=== PATIENT | male | born 1990 | race Caucasian/White ===

== ENCOUNTER 2023-08-05 17:55 | Emergency (ER) | payer OTHER, SELFPAY ==
[2023-08-05 18:09] VITALS: BP 127/76; PULSE 103; RESP 24; TEMP 36.9; O2SAT 100; BMI 23.5
--- NOTE | 2023-08-05 19:05 | CRLHL7_ITS ---
For Patients: As a result of the Century Cures Act, medical imaging exams and procedure reports are released immediately into your electronic medical record. You may view this report before your referring provider. If you have questions, please contact your health care provider. INDICATION: Left upper quadrant pain, vomiting TECHNIQUE: CT abdomen and pelvis acquired with 74 mL Isovue 370 IV contrast. COMPARISON: None FINDINGS: Lower chest: Unremarkable. Liver: 1.1 cm cyst suggested at the inferior medial right lobe, images 51 through 53 of series 2, otherwise unremarkable. Spleen: Unremarkable. Pancreas: Unremarkable. Gallbladder and bile ducts: Unremarkable. Kidneys: 4.2 millimeter nonobstructive calculus within right kidney, otherwise unremarkable. Adrenal glands: Unremarkable. GI tract: Equivocal wall thickening of the stomach, with area of fluid and mucosal thickening at the posterior body of stomach, see images 29 through 39 of series 2, possibly ulceration. The small bowel and colon are unremarkable. No evidence to suggest obstruction. Appendix is normal. Vascular structures: Negative. No sign of aneurysm. Lymph nodes: Unremarkable. Miscellaneous: Unremarkable. No free air or significant free fluid. Pelvic Organs: Unremarkable. Bones: Unremarkable for age. IMPRESSION: 1. Abnormal appearance of the stomach, as above. Ulceration is possibility. Mucosal thickening/wall thickening/gastritis also suggested. Consider endoscopy. 2. Nonobstructive 4.2 millimeter calculus within right kidney. 3. Small hepatic cyst. Please note that all CT scans at this facility use dose modulation, iterative reconstruction, and/or weight-based dosing when appropriate to reduce radiation dose to as low as reasonably achievable. Dictated by Edmundo Huitron MD @ 08/05/2023 8:43:33 PM (Electronically Signed)
--- NOTE | 2023-08-05 19:08 | ED_ITS ---
HPI - General Adult General Date Seen: 08/05/23 Chief complaint: Abdominal Pain Stated complaint: Pain L side abdomen Time Seen by Provider: 08/05/23 18:48 History of Present Illness HPI narrative: This is a pleasant 33-year-old gentleman presenting to the ER today for 2 days of nausea and vomiting and left upper quadrant abdominal pain which began this afternoon. He is generally healthy. No previous history of peptic ulcer disease, previous GI problems, previous surgeries. He does not take any routine medications. 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 He does not use marijuana or other drugs. He is here with his . He did get his COVID booster on Sunday and felt fine that day. He was awoken from sleep overnight Sunday morning around 3:00 a.m., roughly 36-40 hours prior to presentation) with nausea and vomiting. He had multiple episodes of vomiting throughout the day on Sunday there were mostly food and water. He was feeling weak. No fever. Not much pain. No bowel movements. He felt a little bit better overnight Sunday night and into Sunday morning but it was again woken from sleep at around 4:00 a.m. Sunday with more vomiting. He had mostly dry heaves and small amounts of yellow mucousy material. He went to the ER in [place] this morning. While there it sounds like he received IV fluids and IV Zofran and IV Toradol. He was discharged home. They told him to stop drinking alcohol (which he does not drink). It is unclear if he had any laboratory workup or not. No imaging. He was given a prescription for Zofran. The Zofran is not helping this afternoon. He has had more episodes of dry heaving. He had 1 episode of a small volume of brownish material but nothing obviously bloody. He has been chilled and his thought he subjectively was running a fever yesterday. No diarrhea. No bowel movements as we can. He is urinating less than normal. He recalls that he did have an episode of nausea and vomiting couple of weeks ago. He was seen at the ER and [facility] for that and given Zofran which was highly effective. No other previous episodes of nausea vomiting. No marijuana use. No history of cyclic vomiting syndrome or cannabis hyperemesis syndrome. Related Data Previous Rx's Medication Instructions Recorded metoclopramide HCl 10 mg tablet 10 mg PO Q6H PRN nausea and 08/05/23 (Reglan) vomiting #14 tabs omeprazole 40 mg capsule,delayed 40 mg PO DAILY #30 caps 08/05/23 release Allergies Allergy/AdvReac Type Severity Reaction Status Date / Time amoxicillin Allergy Verified 08/05/23 18:08 [facility] Social History Smoking Status: Never smoker Do you use any of these nicotine containing products: None Second hand tobacco smoke exposure: No How often do you have a drink containing alcohol: never How often do you have six or more drinks on one occasion: Never AUDIT-C Alcohol total score: 0 Non-prescribed substance use: denies use service: No Exam Narrative: Exam Narrative: Constitutional: Appears well-developed and well-nourished. Alert. Conversant. Non toxic. HENT: Head: Atraumatic. Nose: Nose normal. Mouth/Throat: Oral mucosa is clear but dry. Not desiccated a cracked. no trismus. Pharynx normal. Tonsils symmetric. No tonsillar enlargement, erythema, or exudate. Eyes: Conjunctivae normal. EOM normal. Pupils equal, round, and reactive to light. No scleral icterus. Neck: Normal range of motion. Neck supple. No tracheal deviation present. Cardiovascular: Normal rate, regular rhythm. No gallop. No friction rub. No murmur heard. Symmetric radial artery pulses Pulmonary/Chest: Effort normal. No stridor. No respiratory distress. No wheezes. No rales. No rhonchi . No tenderness. Abdominal: Soft. Bowel sounds normal. No distension. No mass. Left upper quadrant and left epigastric tenderness. No CVA tenderness. No right upper quadrant tenderness or Miller sign. No lower abdominal tenderness. No rebound. No guarding. Musculoskeletal: RUE: Normal range of motion. No tenderness. No deformity LUE: Normal range of motion. No tenderness. No deformity RLE: Normal range of motion. No edema. No tenderness. No deformity LLE: Normal range of motion. No edema. No tenderness. No deformity Neurological: Alert and oriented to person, place, and time. Normal strength. CN II-VII intact. No sensory deficit. GCS eye subscore is 4. GCS verbal subscore is 5. GCS motor subscore is 6. Normal coordination Skin: Skin is warm and dry. No rash noted. No pallor. Normal capillary refill. Psychiatric: Normal mood. Normal affect. Const: Vital Signs, click to edit/add: Vital Signs - 24 hr 08/05/23 18:09 08/05/23 19:45 Temperature 98.5 F Pulse Rate [Pulse Oximeter] 103 H 89 Respiratory Rate 24 24 Blood Pressure [Ri t Upper Arm] 127/76 123/80 Pulse Oximetry 100 99 Oxygen Delivery Me thod Room Air Room Air Course Course ED Course: [id number]-810. Feeling much better. Sitting up in bed. Nausea improved. Pain improved. IV fluid bolus complete. Awaiting workup. Vital Signs Vital signs: Initial Vital Signs Temperature 98.5 F 08/05/23 18:09 Temperature Source Temporal Artery Scan 08/05/23 18:09 Pulse Rate 103 H 08/05/23 18:09 Pulse Rhythm Regular 08/05/23 18:09 Respiratory Rate 24 08/05/23 18:09 Blood Pressure 127/76 08/05/23 18:09 Blood Pressure Mean 93 08/05/23 18:09 Blood Pressure Position Sitting 08/05/23 18:09 Pulse Oximetry 100 08/05/23 18:09 Oxygen Delivery Method Room Air 08/05/23 18:09 Vital Signs Temperature 98.5 F 08/05/23 18:09 Pulse Rate 103 H 08/05/23 18:09 Respiratory Rate 24 08/05/23 18:09 Blood Pressure 127/76 08/05/23 18:09 Pulse Oximetry 100 08/05/23 18:09 Oxygen Delivery Method Room Air 08/05/23 18:09 Temperature 98.5 F 08/05/23 18:09 Pulse Rate 89 08/05/23 19:45 Respiratory Rate 24 08/05/23 19:45 Blood Pressure 123/80 08/05/23 19:45 Pulse Oximetry 99 08/05/23 19:45 Oxygen Delivery Method Room Air 08/05/23 19:45 Medical Decision Making MDM Narrative Medical decision making narrative: Presented to the Emergency Department with 2 days of nausea and vomiting now associated with left upper quadrant epigastric abdominal pain. The differential diagnosis of abdominal pain includes: Appendicitis, Bowel Obstruction, Ulcer, Ischemia, Cholecystitis, Diverticulitis, Pancreatitis, UTI, kidney stone, Enteritis/Colitis, amongst many other etiologies. Laboratory testing does not reveal a cause for the patient's pain. CT Imaging is noted to be show signs of gastritis, also incidental kidney stone and hepatic cyst (discussed with the patient and his ). We are suspicious that his symptoms are probably related to peptic ulcer disease or gastritis. He has tremendously improved after Reglan and fluids here in the ER. He is not having any symptoms of GI bleeding. Vital signs stable. Observed here in the ER for more than 3 hours with no recurrent vomiting or signs of bleeding. At this point only needs to be admitted for hemoglobin monitoring or immediate endoscopy. Start him on Reglan for symptomatic relief and Prilosec. Recommend close outpatient follow-up for endoscopy and further evaluation. Follow-up with surgery or primary care or return to the ED is indicated. The patient also understands that if they worsen, they should return to the ER right away. I discussed the uncertainty about the diagnosis and answered the patient's questions. Abdominal pain return precautions discussed. Lab Data Labs: Lab Results 08/05/23 08/05/23 Range/Units 19:25 19:47 WBC 6.94 (4.50-11.00) K/uL RBC 4.66 (4.30-5.90) m/uL Hgb 13.5 (13.5-17.5) gm/dL Hct 39.8 (37.0-53.0) % MCV 85 (80-100) fL MCH 29 (26-34) pg MCHC 34 (32-36) gm/dL RDW Coeff of Shelly 12.4 (11.5-15.5) % Plt Count 322 (140-440) K/uL Neut % (Auto) 83.8 H (42.0-72.0) % Lymph % (Auto) 11.5 L (20-44) % [place] % (Auto) 4.6 (0.0-11.0) % Eos % (Auto) 0.0 (0.0-7.0) % Baso % (Auto) 0.0 (0.0-3.0) % Neut # (Auto) 5.80 (1.7-7.0) K/uL Lymph # (Auto) 0.80 L (0.90-2.90) K/uL [place] # (Auto) 0.30 (0.00-0.90) K/UL Eos # (Auto) 0.00 (0.00-0.50) K/uL Baso # (Auto) 0.00 (0.00-0.30) K/uL Abs Immat Gran (auto) 0.01 (0.00-0.30) K/uL Imm/Tot Granulo (auto) 0.1 % Sodium 135 (135-149) mmol/L Potassium 3.9 (3.6-5.1) mmol/L Chloride 102 (96-114) mmol/L Carbon Dioxide 24 (20-32) mmol/L Anion Gap 9 (7-15) mEq/L BUN 11 (5-24) mg/dL Creatinine 0.6 (0.5-1.5) mg/dL Estimated Creat Clear 165.25 Estimated GFR 132 ml/min Glucose 104 (60-115) mg/dL Calcium 8.9 (8.4-10.6) mg/dL Total Bilirubin 0.7 (0.1-1.5) mg/dL AST 42 H (12-35) U/L ALT 38 (4-50) U/L Alkaline Phosphatase 68 (40-150) U/L Total Protein 7.9 (6.0-8.3) g/dL Albumin 4.4 (3.3-5.0) g/dL Lipase 73 (23-300) U/L Urine Color Yellow (Yellow) Urine Appearance Clear (Clear) Urine pH 7.0 (5.0-8.5) Ur Specific [place] 1.015 (1.000-1.030) Urine Protein Negative (Negative) Urine Glucose (UA) Negative (Negative) Urine Ketones Negative (Negative) Urine Blood Negative (Negative) Urine Nitrite Negative (Negative) Urine Bilirubin Negative (Negative) Urine Urobilinogen 0.2 (0.2-1.0) Ur Leukocyte Esterase Negative (Negative) Urine RBC 0-2 (0-2) Urine WBC 0-2 (0-5) Urine WBC Clumps None (None) Ur Squamous Epith Cells Few (None-Few) Urine Bacteria Few A (None) Imaging Data CT scan - abdomen: Attestation: I have reviewed the pertinent imaging results. Radiologist's impression: IMPRESSION: 1. Abnormal appearance of the stomach, as above. Ulceration is possibility. Mucosal thickening/wall thickening/gastritis also suggested. Consider endoscopy. 2. Nonobstructive 4.2 millimeter calculus within right kidney. 3. Small hepatic cyst. Discharge Plan Discharge Clinical Impression: Gastritis, Vomiting Patient Disposition: Home, Self-Care Condition: Stable Instructions: Gastritis (DC), Acute Nausea and Vomiting (DC), Acute Abdominal Pain (DC) Additional Instructions: Please return to the ER right away if you have worsening symptoms especially uncontrolled nausea and vomiting, bloody vomiting, bloody or black stools, weakness, fever, worsening pain, or any other problems. Please start on the stomach acid medicine and take it every day. Avoid ibuprofen, Aleve, and other nonsteroidal anti-inflammatory medications. Avoid spicy or acidic foods. Use Reglan (or Zofran) if needed for nausea. Please call the [facility] at [phone] tomorrow to schedule a follow- up appointment with surgery and to arrange for an endoscopy for further eval uation. Prescriptions: New omeprazole 40 mg capsule,delayed release(DR/EC) 40 mg PO DAILY Qty: 30 2RF metoclopramide HCl [Reglan] 10 mg tablet 10 mg PO Q6H PRN (Reason: nausea and vomiting) Qty: 14 0RF Follow Up/Referrals: Provider,Not a Local [Primary Care Provider] - Stand Alone Forms: [employer] Info Instructions
[2023-08-05] MEDS: METOCLOPRAMIDE HCL 5 MG/ML INJ 10 MG IVP (19:37)
[2023-08-05] MEDS: diphenhydrAMINE 50 MG/ML inj 12.5 MG IVP (19:40)
[2023-08-05 19:41] LABS: Hematocrit 39.8 % (37.0-53.0); Hemoglobin* 13.5 gm/dL (13.5-17.5); Immature Granulocytes Abs Auto 0.01 K/uL (0.00-0.30); Immature Granulocytes Pct Auto 0.1 %; Lymphocytes Percent Auto 11.5 % (20-44); Mean Corpuscular HGB Conc 34 gm/dL (32-36); Mean Corpuscular Hemoglobin 29 pg (26-34); Mean Corpuscular Volume 85 fL (80-100); Monocytes Percent Auto 4.6 % (0.0-11.0); Neutrophils Percent Auto 83.8 % (42.0-72.0); Platelet Count* 322 K/uL (140-440); RDW Coefficient of Variation % 12.4 % (11.5-15.5); Red Blood Count 4.66 m/uL (4.30-5.90); White Blood Count* 6.94 K/uL (4.50-11.00)
[2023-08-05] MEDS: MAG HYDROX/ALUMINUM HYD/SIMETH 30 ML ORAL.SUSP 15 ML PO (19:42)
[2023-08-05 19:43] LABS: Slide Review Reflex No
[2023-08-05 19:45] VITALS: BP 123/80; PULSE 89; RESP 24; O2SAT 99
[2023-08-05 19:54] LABS: Albumin* 4.4 g/dL (3.3-5.0); Chloride* 102 mmol/L (96-114); Sodium* 135 mmol/L (135-149)
[2023-08-05 19:54] LABS: Appearance Urine Clear (Clear); Bilirubin Urine Negative (Negative); Blood Urine Negative (Negative); Color Urine Yellow (Yellow); Glucose Urine Negative (Negative); Ketones Urine Negative (Negative); Leukocyte Esterase Urine Negative (Negative); Nitrite Urine Negative (Negative); Protein Urine Negative (Negative); Specific Gravity Urine 1.015 (1.000-1.030); Urobilinogen Urine 0.2 (0.2-1.0)
[2023-08-05 19:55] LABS: Potassium* 3.9 mmol/L (3.6-5.1)
[2023-08-05 19:57] LABS: Alanine Aminotransferase* 38 U/L (4-50); Alkaline Phosphatase* 68 U/L (40-150); Anion Gap 9 mEq/L (7-15); Aspartate Amino Transferase* 42 U/L (12-35); Bilirubin Total* 0.7 mg/dL (0.1-1.5); Blood Urea Nitrogen* 11 mg/dL (5-24); Calcium* 8.9 mg/dL (8.4-10.6); Carbon Dioxide* 24 mmol/L (20-32); Creatinine* 0.6 mg/dL (0.5-1.5); Est. Creatinine Clearance* 165.25; Estimated Glomerular Filt Rate 132 ml/min; Glucose* 104 mg/dL (60-115); Lipase* 73 U/L (23-300); Total Protein* 7.9 g/dL (6.0-8.3)
[2023-08-05 20:27] LABS: Bacteria Urine Few; RBC Urine 0-2 (0-2); Squamous Epithelial Cell Urine Few (None-Few); WBC Urine 0-2 (0-5)
[2023-08-05] MEDS: PANTOPRAZOLE SODIUM 40 MG INJ IVP (21:19)
== END 2023-08-05 21:31 | disposition home or self-care (01) ==
PROVIDERS: Emergency Provider Emergency Medicine
DX: K29.70 Gastritis, unspecified, without bleeding (principal)
CPT/HCPCS: 36415; 74177; 80053; 81001; 83690; 85025; 87086; 96374; 96375; 99283; 99284; A9270; C9113; J1200; J2765; Q9967

== ENCOUNTER 2023-09-03 08:30 | Outpatient (CLI) | payer OTHER, SELFPAY ==
--- NOTE | 2023-09-03 10:11 | W.ANESCHARGE ---
Anesthesia Charges Start Date/Time Anesthesia Start Date: 09/03/23 Anesthesia Start Time: 09:50 Stop Date/Time Anesthesia Stop Date: 09/03/23 Anesthesia Stop Time: 10:08
--- NOTE | 2023-09-03 10:37 | W.ANESCHARGE ---
Anesthesia Charges Start Date/Time Anesthesia Start Date: 09/03/23 Anesthesia Start Time: 09:50 Stop Date/Time Anesthesia Stop Date: 09/03/23 Anesthesia Stop Time: 10:08
== END 2023-09-03 08:31 | disposition home or self-care (01) ==
LOC: OP CLINIC 08:33
PROVIDERS: PCP Student in an Organized Health Care Education/Training Program; Visit Provider Surgery
DX: R11.15 Cyclical vomiting syndrome unrelated to migraine (principal); K31.89 Other diseases of stomach and duodenum
CPT/HCPCS: 00731; 43239; 88305; J2704